=== PATIENT | female | born 1965 | race American Indian/Alaskan Native ===

== ENCOUNTER 2016-03-27 20:56 | Emergency (ER) | payer SELFPAY ==
[2016-03-27] MEDS ORDERED: MOTRIN PO ONE (22:49)
--- NOTE | 2016-03-27 22:53 | Emergency Department Report ---
ED Chest Pain HPI - General Chief Complaint: Chest Pain Stated Complaint: CHEST PAIN Time Seen by Provider: 03/27/16 22:44 Source: patient, EMS Mode of arrival: Stretcher Limitations: Physical Limitation - History of Present Illness Initial Comments: Patient is a 50-year-old female with history of seizure disorder, hyperlipidemia , anxiety presenting today because of right-sided chest pain. States that the pain is sharp in nature and radiates down her right arm. States she's been having this pain on and off for the last 1 month. Denies any nausea vomiting or unusual sweating associated with this. She is not a smoker. - Related Data Home Medications Medication Instructions Recorded Confirmed Last Taken ALPRAZolam [Xanax TAB] 2 mg PO BID 03/27/16 03/27/16 Unknown Hydroxyzine HCl [hydrOXYzine] 25 mg PO QID 03/27/16 03/27/16 Unknown Oxybutynin [Ditropan] 5 mg PO DAILY 03/27/16 03/27/16 Unknown Topiramate [Topamax TAB] 50 mg PO BID 03/27/16 03/27/16 Unknown Previous Rx's Medication Instructions Recorded Last Taken Type Ibuprofen [Motrin] 600 mg PO Q8H PRN #14 tablet 03/28/16 Unknown Rx Allergies Allergy/AdvReac Type Severity Reaction Status Date / Time Penicillins Allergy Unknown Verified 03/27/16 21:05 VIK score - Vik Score Age > 65: (0) No Aspirin use within the Past 7 Days: (0) No 3 or more CAD Risk Factors: (0) No 2 or more Angina events in past 24 hrs: (0) No Known CAD with more than 50% Stenosis: (0) No Elevated Cardiac Markers: (0) No ST Deviation Greater than 0.5mm: (0) No VIK Score: 0 ED Review of Systems ROS: Stated complaint: CHEST PAIN Other details as noted in HPI Comment: All other systems reviewed and negative Constitutional: denies: chills, fever Respiratory: cough. denies: shortness of breath Cardiovascular: chest pain Gastrointestinal: denies: abdominal pain, vomiting, diarrhea Psychiatric: anxiety ED Past Medical Hx - Past Medical History Previous Medical History?: Yes Hx Hypertension: Yes Hx CVA: Yes Hx Seizures: Yes Hx Psychiatric Treatment: Yes (anxiety) - Surgical History Past Surgical History?: No - Social History Smoking Status: Never Smoker Substance Use Type: None - Medications Home Medications: Home Medications Medication Instructions Recorded Confirmed Last Taken Type ALPRAZolam [Xanax TAB] 2 mg PO BID 03/27/16 03/27/16 Unknown History Hydroxyzine HCl [hydrOXYzine] 25 mg PO QID 03/27/16 03/27/16 Unknown History Oxybutynin [Ditropan] 5 mg PO DAILY 03/27/16 03/27/16 Unknown History Topiramate [Topamax TAB] 50 mg PO BID 03/27/16 03/27/16 Unknown History Ibuprofen [Motrin] 600 mg PO Q8H PRN #14 tablet 03/28/16 Unknown Rx ED Physical Exam - General Limitations: Physical Limitation General appearance: in no apparent distress, obese, other (patient is sleepy and only intermittently opens her eyes during questioning. When asked why she states that she has always been sleepy at this time a night and that this is not unusual for her.) - Head Head exam: Present: atraumatic - Eye Eye exam: Present: normal appearance - Neck Neck exam: Present: normal inspection - Respiratory Respiratory exam: Present: normal lung sounds bilaterally, chest wall tenderness (tenderness to the right chest wall that's focal between the second and third ribs and completely reproduces the pain.), other (Limited exam due to body habitus) - Cardiovascular Cardiovascular Exam: Present: regular rate, normal rhythm - GI/Abdominal GI/Abdominal exam: Present: soft. Absent: distended, tenderness - Extremities Exam Extremities exam: Present: normal inspection. Absent: pedal edema - Back Exam Back exam: Present: normal inspection - Neurological Exam Neurological exam: Absent: motor sensory deficit - Psychiatric Psychiatric exam: Present: normal affect - Skin Skin exam: Absent: rash ED Course Vital Signs 03/27/16 03/27/16 03/27/16 21:10 22:00 22:10 Pulse Rate 81 90 Respiratory 14 20 Rate Blood Pressure 101/50 98/49 O2 Sat by Pulse 100 95 95 Oximetry 03/27/16 03/27/16 03/28/16 22:59 23:00 00:00 Pulse Rate 79 80 Respiratory 18 16 16 Rate Blood Pressure 108/48 111/73 O2 Sat by Pulse 99 99 Oximetry - Reevaluation(s) Reevaluation #1: 03/28/16 00:14 Patient states that her chest pain has improved. Labs, EKG and x-ray results reviewed with patient. I explained that we have ruled out a heart attack today but we have not ruled out heart disease. I also explained that she needs to follow-up with a [employer] up [employer] and her primary care doctor in the next few days. She expresses understanding and is comfortable with the plan. All questions answered. 03/28/16 00:16 ED Medical Decision Making - Lab Data Result diagrams: 03/27/16 22:58 03/27/16 22:58 - Medical Decision Making Patient's symptoms do not seem consistent with acute coronary syndrome. However since the patient doesn't appear reliable and she is to 1 years old with a history of hyperlipidemia Will check basic labs including troponin and chest x-ray. EKG shows normal sinus rhythm without any ST changes. One PAC noted. Isolated T-wave inversion in lead 3 however no other T-wave changes. EKG appears nonischemic. Shows poor inspiratory effort, no clear focal infiltrates or pneumothorax. Labs show a normal negative troponin, unremarkable otherwise She has a heart score of 2 (+1 for 2 risk factors and +1 for age) Given her low heart score on the low concern for this being cardiac, will discharge the patient home with primary care and cardiology follow-up. Pressure is noted to be low initially, the patient has no history of hypertension, last 2 blood pressures 15 minutes apart were 110/61 and 111/73. Patient's heart rate has also been normal while here and she is not on a beta blockers is unlikely that this truly represents hypotension for her. Critical care attestation.: If time is entered above; I have spent that time in minutes in the direct care of this critically ill patient, excluding procedure time. ED Disposition Clinical Impression: Chest pain Qualifiers: Chest pain type: unspecified Qualified Code(s): R07.9 - Chest pain, unspecified Disposition: DISCHARGED TO HOME OR SELFCARE Is pt being admited?: No Does the pt Need Aspirin: No Condition: Stable Instructions: Chest Pain (ED) Additional Instructions: Least follow up with her primary care doctor in the next 3-5 days. Please also follow up with a [employer] up [employer] in the same time period. We have ruled out a heart attack in her ER stay, however this may still be from heart disease which is why it is important for you to follow-up with a [employer] up [employer]. If you have any worsening of your chest pain or if you develop any new symptoms please return to the emergency room immediately. Prescriptions: Ibuprofen [Motrin] 600 mg PO Q8H PRN #14 tablet PRN Reason: Pain Referrals: PRIMARY CARE,MD [Primary Care Provider] - 3-5 Days Time of Disposition: 00:16
[2016-03-27 23:13] LABS: Basophils % (Auto) 0.6 % (0.0-1.8); Eosinophils % (Auto) 3.6 % (0.0-4.3); Hemoglobin 11.5 gm/dl (10.1-14.3); White Blood Count 11.8 K/mm3 (4.5-11.0)
[2016-03-27 23:32] LABS: Anion Gap 19 mmol/L; BUN/Creatinine Ratio 17.14; Blood Urea Nitrogen 12 mg/dL (7-17); Calcium 8.4 mg/dL (8.4-10.2); Carbon Dioxide 23 mmol/L (22-30); Chloride 102.7 mmol/L (98-107); Glucose 127 mg/dL (65-100); Potassium 3.6 mmol/L (3.6-5.0); Sodium 141 mmol/L (137-145)
[2016-03-28 00:34] LABS: Hematocrit 35.9 % (30.3-42.9); Mean Corpuscular HGB Conc 32 % (30-34); Mean Corpuscular Hemoglobin 24 pg (28-32); Mean Corpuscular Volume 76 fl (79-97); Platelet Count 289 K/mm3 (140-440); Red Cell Distribution Width 16.7 % (13.2-15.2)
[2016-03-28 01:09] VITALS: BP 112/56
--- NOTE | 2016-03-28 09:54 | XRay Report ---
AP CHEST: HISTORY: chest pain AP view of the chest demonstrates a normal mediastinal and cardiac contour with clear lungs and normal bony and soft tissue structures. IMPRESSION: Unremarkable AP chest.
== END 2016-03-28 01:05 | disposition home or self-care (01) ==
LOC: ED 20:56
DX: R07.9 Chest pain, unspecified (principal); I10 Essential (primary) hypertension; G40.909 Epilepsy, unspecified, not intractable, without status epilepticus; F41.9 Anxiety disorder, unspecified; Z86.73 Personal history of transient ischemic attack (TIA), and cerebral infarction without residual deficits; Z88.0 Allergy status to penicillin
CPT/HCPCS: 36415; 71010; 80048; 84484; 85025; 93005; 93010; 99284

== ENCOUNTER 2021-01-05 23:37 | Emergency (ER) | payer OTHER ==
[2021-01-06] MEDS ORDERED: predniSONE 50 MG TAB PO ONE (01:44)
[2021-01-06] MEDS ORDERED: oxyCODONE /ACETAMINOPHEN 5-325MG TAB PO ONE (01:44)
[2021-01-06] MEDS ORDERED: ONDANSETRON 4 MG ODT TAB PO ONE (01:44)
[2021-01-06 02:21] LABS: Basophils % (Auto) 0.3 % (0.0-1.8); Eosinophils # (Auto) 0.3 K/mm3 (0.0-0.4); Eosinophils % (Auto) 2.8 % (0.0-4.3); Hematocrit 38.9 % (30.3-42.9); Hemoglobin 12.2 gm/dl (10.1-14.3); Lymphocytes # (Auto) 3.6 K/mm3 (1.2-5.4); Lymphocytes % (Auto) 37.7 % (13.4-35.0); Mean Corpuscular HGB Conc 31 % (30-34); Mean Corpuscular Volume 79 fl (79-97); Monocytes # (Auto) 0.4 K/mm3 (0.0-0.8); Monocytes % (Auto) 4.5 % (0.0-7.3); Platelet Count 309 K/mm3 (140-440); Red Blood Count 4.95 M/mm3 (3.65-5.03); Red Cell Distribution Width 16.6 % (13.2-15.2)
[2021-01-06 02:41] LABS: Alanine Aminotransferase 15 units/L (7-56); BUN/Creatinine Ratio 18; Blood Urea Nitrogen 16 mg/dL (7-17); Calcium 9.4 mg/dL (8.4-10.2); Hemolysis Index 17
[2021-01-06 02:57] LABS: Uric Acid 6.5 mg/dL (3.5-7.6)
--- NOTE | 2021-01-06 03:09 | Emergency Department Report ---
<YOSI QUINTERO - Last Filed: 01/06/21 12:02> ED General Adult HPI - General Chief complaint: Extremity Injury, Upper Stated complaint: TOTAL NUMBNESS RIGHTSIDE - Related Data Home Medications Medication Instructions Recorded Confirmed Last Taken ALPRAZolam [Xanax TAB] 2 mg PO BID 03/27/16 03/27/16 Unknown Hydroxyzine HCl [hydrOXYzine] 25 mg PO QID 03/27/16 03/27/16 Unknown Oxybutynin [Ditropan] 5 mg PO DAILY 03/27/16 03/27/16 Unknown Topiramate [Topamax TAB] 50 mg PO BID 03/27/16 03/27/16 Unknown Previous Rx's Medication Instructions Recorded Last Taken Type Ibuprofen [Motrin] 600 mg PO Q8H PRN #14 tablet 03/28/16 Unknown Rx Ondansetron [Zofran Odt] 4 mg PO Q8HR PRN #14 tab.rapdis 01/06/21 Unknown Rx Prednisone [predniSONE 10 mg 10 mg PO .TAPER #1 tab.ds.pk 01/06/21 Unknown Rx (6-Day Pack, 21 Tabs)] traMADoL [Ultram 50 MG tab] 50 mg PO Q4HR PRN #14 tablet 01/06/21 Unknown Rx Allergies Allergy/AdvReac Type Severity Reaction Status Date / Time Penicillins Allergy Unknown Verified 03/27/16 21:05 latex AdvReac Rash Verified 01/06/21 00:06 ED Past Medical Hx - Medications Home Medications: Home Medications Medication Instructions Recorded Confirmed Last Taken Type ALPRAZolam [Xanax TAB] 2 mg PO BID 03/27/16 03/27/16 Unknown History Hydroxyzine HCl [hydrOXYzine] 25 mg PO QID 03/27/16 03/27/16 Unknown History Oxybutynin [Ditropan] 5 mg PO DAILY 03/27/16 03/27/16 Unknown History Topiramate [Topamax TAB] 50 mg PO BID 03/27/16 03/27/16 Unknown History Ibuprofen [Motrin] 600 mg PO Q8H PRN #14 tablet 03/28/16 Unknown Rx Ondansetron [Zofran Odt] 4 mg PO Q8HR PRN #14 tab.rapdis 01/06/21 Unknown Rx Prednisone [predniSONE 10 mg 10 mg PO .TAPER #1 tab.ds.pk 01/06/21 Unknown Rx (6-Day Pack, 21 Tabs)] traMADoL [Ultram 50 MG tab] 50 mg PO Q4HR PRN #14 tablet 01/06/21 Unknown Rx ED Medical Decision Making - Lab Data Result diagrams: 01/06/21 02:00 01/06/21 02:00 - Medical Decision Making Patient is 55 years old female signed out to me by my colleague Dr. Bueno. Patient presented to the ER complaining of right arm pain, neck pain and right lower extremity weakness. Patient stated that her symptoms has been going on for a while however for the last 2 days felt it is getting worse. Patient noticed going to the bathroom several times with no difficulties. Patient is still denying any saddle anesthesia. No bowel or bladder incontinence. MRI of the brain is unremarkable. MRI of the cervical spine showed multilevel narrowing. I discussed the patient and the MRI finding with Dr. Araon Healy, neurosurgeon on-call. He advised patient does not need to be admitted to the hospital and he will be happy to see the patient in his office. Patient given prescription for tramadol, prednisone and Zofran and advised to follow-up with Dr. Healy. Patient also advised to return to the ER if she develop any new symptoms. ED Disposition Clinical Impression: Acute chest pain, Right sided weakness, Right sided numbness, Morbid obesity, Degenerative disc disease, cervical Disposition: 01 HOME / SELF CARE / HOMELESS Is pt being admited?: No Condition: Good Instructions: Cervical Radiculopathy, Degenerative Disk Disease, Weakness, Chest Pain (ED) Prescriptions: Prednisone [predniSONE 10 mg (6-Day Pack, 21 Tabs)] 10 mg PO .TAPER #1 tab.ds.pk traMADoL [Ultram 50 MG tab] 50 mg PO Q4HR PRN #14 tablet PRN Reason: Pain Ondansetron [Zofran Odt] 4 mg PO Q8HR PRN #14 tab.rapdis PRN Reason: Nausea And Vomiting Referrals: PRIMARY CARE,MD [Primary Care Provider] - 3-5 Days AARON BARTHOLOMEW II, MD [Staff Physician] - 3-5 Days Forms: Work/School Release Form(ED) <EMMA GONZALEZ - Last Filed: 01/07/21 06:11> ED General Adult HPI - General PUI?: No Source: patient, RN notes reviewed Mode of arrival: Wheelchair Limitations: Physical Limitation - History of Present Illness Initial comments: The patient was evaluated in the emergency department for symptoms described in the history of present illness. He/she was evaluated in the context of the global COVID-19 pandemic, which necessitated consideration that the patient might be at risk for infection with the virus that causes COVID-19. Institutional protocols and algorithms that pertain to the evaluation of patients at risk for COVID-19 are in a state of rapid change based on information released by regulatory bodies including the CDC and federal and state organizations. These policies and algorithms were followed during the patient's care in the emergency department. Please note that these policies, procedures and recommendations changed on a rapid basis. During the history and physical examination, I am chaperoned by Casandra Romero Past medical history: Obesity, body mass index of 42, anxiety, stroke, hypertens ion, chronic pain The patient is a 55-year-old female. She states that she is right-hand dominant. She presents to the ER today with a primary complaint of right arm, right leg weakness and numbness, and decreased ability to move her right arm and right leg. Symptoms present for 2 to 2-1/2 days. This is associated with paracervical neck pain. The patient has a chronic headache. The patient denies midline neck pain. The patient also endorses central, and left-sided chest pain. The pain does not radiate to the back, arms or neck. The patient denies vomiting, diaphoresis. The patient has chronic shortness of breath. The patient denies travel, surgery, immobilization, DVT and pulmonary embolism risk factors. The patient denies bladder/bowel retention incontinence and saddle anesthesia. The patient denies new/different lumbar back pain. The patient denies abdominal pain. The patient denies intravenous drug use. -: Gradual, days(s) Location: chest (Chest pain started this evening), right, upper extremity, lower extremity Severity scale (0 -10): 10 Consistency: constant Improves with: rest Worsens with: movement ED Review of Systems ROS: Stated complaint: TOTAL NUMBNESS RIGHTSIDE Other details as noted in HPI Constitutional: malaise, weakness Eyes: denies: eye discharge ENT: denies: epistaxis Respiratory: shortness of breath. denies: cough Cardiovascular: chest pain Gastrointestinal: denies: abdominal pain Musculoskeletal: back pain, arthralgia, myalgia Neurological: weakness, numbness, paresthesias, abnormal gait ED Past Medical Hx - Past Medical History Hx Hypertension: Yes Hx CVA: Yes Hx Seizures: Yes Hx Psychiatric Treatment: Yes (anxiety) Additional medical history: Chronic pain - Surgical History Past Surgical History?: No - Social History Smoking Status: Never Smoker Substance Use Type: None ED Physical Exam - General Limitations: Physical Limitation General appearance: alert, obese - Head Head exam: Present: atraumatic, normocephalic - Eye Eye exam: Present: normal appearance, EOMI. Absent: nystagmus - ENT ENT exam: Present: normal exam, normal orophraynx, mucous membranes moist, normal external ear exam - Neck Neck exam: Present: normal inspection, full ROM. Absent: tenderness, meningismus - Respiratory Respiratory exam: Present: decreased breath sounds. Absent: respiratory distress, wheezes, rales, rhonchi, stridor - Cardiovascular Cardiovascular Exam: Present: regular rate, normal rhythm, normal heart sounds. Absent: bradycardia, tachycardia, irregular rhythm, systolic murmur, diastolic murmur, rubs, gallop - GI/Abdominal GI/Abdominal exam: Present: soft. Absent: distended, tenderness, guarding, rebound, rigid, pulsatile mass - Extremities Exam Extremities exam: Present: normal inspection, full ROM (Full range of motion left arm and left leg), pedal edema (1+ edema in the bilateral lower extremities), other (2+ pulses noted in the bilateral upper and lower e xtremities. There is no palpable cord. negative Homans sign. Muscular compartments are soft. The pelvis is stable.). Absent: calf tenderness - Back Exam Back exam: Present: normal inspection, paraspinal tenderness. Absent: tenderness, CVA tenderness (R), CVA tenderness (L) - Neurological Exam Neurological exam: Present: alert (There is no facial droop. The tongue is midline. EOMI.), oriented X3, motor sensory deficit (There is 4 out of 5 strength right arm and right leg. 5 out of 5 strength left arm and left leg. Decreased sensation to light touch right arm and right leg.) - Psychiatric Psychiatric exam: Present: normal affect, normal mood - Skin Skin exam: Present: warm, dry, intact, normal color. Absent: rash ED Course Vital Signs 01/06/21 01/06/21 01/06/21 00:00 02:21 03:28 Temperature 98.9 F Pulse Rate 81 83 Respiratory 20 18 21 Rate Blood Pressure 124/61 Blood Pressure [Left] O2 Sat by Pulse 99 Oximetry 01/06/21 01/06/21 01/06/21 03:30 03:45 04:00 Temperature Pulse Rate 76 83 66 Respiratory 16 13 21 Rate Blood Pressure 116/52 113/62 113/62 Blood Pressure [Left] O2 Sat by Pulse 98 98 100 Oximetry 01/06/21 01/06/21 01/06/21 04:15 04:31 04:45 Temperature Pulse Rate 72 92 H 90 Respiratory 20 13 18 Rate Blood Pressure Blood Pressure [Left] O2 Sat by Pulse 95 95 92 Oximetry 01/06/21 01/06/21 01/06/21 05:01 05:15 05:31 Temperature Pulse Rate 82 86 86 Respiratory 12 12 13 Rate Blood Pressure 125/89 Blood Pressure [Left] O2 Sat by Pulse 97 95 95 Oximetry 01/06/21 01/06/21 01/06/21 05:45 06:01 06:15 Temperature Pulse Rate 74 84 94 H Respiratory 11 L 12 15 Rate Blood Pressure Blood Pressure [Left] O2 Sat by Pulse 97 96 92 Oximetry 01/06/21 01/06/21 01/06/21 06:30 06:45 06:57 Temperature Pulse Rate 106 H 76 83 Respiratory 23 13 16 Rate Blood Pressure Blood Pressure 114/67 [Left] O2 Sat by Pulse 97 94 99 Oximetry 01/06/21 01/06/21 01/06/21 07:01 07:15 07:31 Temperature Pulse Rate 74 Respiratory 11 L 14 Rate Blood Pressure 114/67 114/67 114/67 Blood Pressure [Left] O2 Sat by Pulse 99 98 96 Oximetry 01/06/21 01/06/21 01/06/21 07:45 08:01 08:15 Temperature Pulse Rate 86 Respiratory 14 Rate Blood Pressure 114/67 122/66 122/66 Blood Pressure [Left] O2 Sat by Pulse 88 97 95 Oximetry 01/06/21 01/06/21 01/06/21 08:31 08:46 08:48 Temperature Pulse Rate Respiratory 20 Rate Blood Pressure 112/60 112/60 Blood Pressure [Left] O2 Sat by Pulse 96 96 97 Oximetry 01/06/21 01/06/21 01/06/21 11:57 12:01 12:15 Temperature Pulse Rate 89 84 Respiratory 20 19 Rate Blood Pressure 112/60 112/60 112/60 Blood Pressure [Left] O2 Sat by Pulse 80 L 99 Oximetry 01/06/21 12:31 Temperature Pulse Rate 69 Respiratory 20 Rate Blood Pressure 115/70 Blood Pressure [Left] O2 Sat by Pulse 98 Oximetry - Reevaluation(s) Reevaluation #1: 01/06/21 05:28 Differential diagnosis, including but not limited to: Deconditioning, cervical radiculopathy, brachial plexopathy, stroke, pneumonia, GERD, gastritis, hiatal hernia, coronary artery disease, obstructive sleep apnea, pulmonary hypertension Assessment and plan: 55-year-old female with 2 complaints. Complaints 1, right-sided weakness and numbness for 2 days. Suspicious for cervical radiculopathy. Noncontrast CT scan of the brain and cervical spine nondiagnostic. MRI without contrast of the brain, MRI of the cervical spine with and without contrast have been ordered. Discussed the patient's history, physical, and clinical impression with neurology on-call, Dr. Steele; please reference his note. Recommends of follow-up on MRI. We will treat the patient's pain. Care will be transferred to the oncoming ER physician, Dr. Adrienne Sheikh to follow-up on MRI of the brain and cervical spine. In terms of the patient's chest pain, she is not currently tachycardic, tachypneic or hypoxic, she denies DVT and pulmonary embolism risk factors, and she is low risk by Wells criteria for pulmonary embolism. Moderate risk for major adverse cardiac event as per heart score. Reevaluation #2: 01/06/21 05:34 [place] inseamer aware 12/19/2020 1 12/19/2020 OXYCODONE HCL 15 MG TABLET 60.0 30 IN KATTY [id number] [facility] (4493) 0 45.0 M[facility] Comm [place] 12/19/2020 1 12/19/2020 OXYCODONE-ACETAMINOPHEN 10-325 120.0 30 IN KATTY [id number] [facility] (4493) 0 60.0 [place] [place] 11/20/2020 1 11/18/2020 OXYCODONE HCL 15 MG TABLET 60.0 30 IN KATTY [id number] [facility] (4493) 0 45.0 [place] [place] 11/20/2020 1 11/18/2020 OXYCODONE-ACETAMINOPHEN 10-325 120.0 30 IN KATTY [id number] [facility] (4493) 0 60.0 [place] 10/23/2020 1 10/23/2020 OXYCODONE HCL 15 MG TABLET 60.0 30 IN KATTY [id number] [facility] (4493) 0 45.0 [place] 10/23/2020 1 10/23/2020 OXYCODONE-ACETAMINOPHEN 10-325 120.0 30 IN KATTY [id number] [facility] (4493) 0 60.0 [place] 09/23/2020 1 09/23/2020 OXYCODONE HCL 15 MG TABLET 60.0 30 IN KATTY [id number] [facility] (4493) [address] [facility] 09/23/2020 1 09/23/2020 OXYCODONE-ACETAMINOPHEN 10-325 120.0 30 IN KATTY [id number] [facility] (4493) [address] [facility] 08/26/2020 1 08/26/2020 OXYCODONE HCL 15 MG TABLET 60.0 30 IN KATTY [id number] [facility] (4493) [address] [facility] 08/26/2020 1 08/26/2020 OXYCODONE-ACETAMINOPHEN 10-325 120.0 30 IN KATTY [id number] [facility] (4493) [address] [facility] 07/29/2020 1 07/28/2020 OXYCODONE HCL 15 MG TABLET 60.0 30 IN KATTY [id number] [facility] (4493) [address] [facility] 07/28/2020 1 07/28/2020 OXYCODONE-ACETAMINOPHEN 10-325 120.0 30 IN KATTY [id number] [facility] (2639) 0 60.0 [place] 07/03/2020 1 06/30/2020 OXYCODONE-ACETAMINOPHEN 10-325 120.0 30 IN KATTY [id number] [facility] (4493) [address] [facility] 06/30/2020 1 06/30/2020 OXYCODONE HCL 15 MG TABLET 60.0 20 IN KATTY [id number] [facility] (4493) 0 67.5 [facility] [place] 06/30/2020 1 06/30/2020 PHENTERMINE 37.5 MG TABLET 30.0 30 IN KATTY [id number] [facility] (4493) 0 Comm Ins [place] 06/05/2020 1 06/02/2020 OXYCODONE-ACETAMINOPHEN 10-325 120.0 30 IN KATTY [id number] [facility] (4493) 0 60.0 [place] 06/05/2020 1 06/02/2020 OXYCODONE HCL 15 MG TABLET 60.0 15 IN KATTY [id number] [facility] (4493) 0 90.0 [place] 05/08/2020 1 05/05/2020 OXYCODONE HCL 15 MG TABLET 60.0 30 IN KATTY [id number] [facility] (4493) 0 45.0 [place] 05/08/2020 1 05/05/2020 OXYCODONE-ACETAMINOPHEN 10-325 120.0 30 IN KATTY [id number] [facility] (4493) 0 60.0 [place] 04/08/2020 3 04/08/2020 OXYCODONE HCL 15 MG TABLET 60.0 30 IN KATTY [id number] [facility] (7953) 0 45.0 [place] 04/08/2020 3 04/08/2020 OXYCODONE-ACETAMINOPHEN 10-325 120.0 30 IN KATTY [id number] [facility] (7953) 0 60.0 [place] 03/12/2020 3 03/11/2020 OXYCODONE HCL 15 MG TABLET 60.0 30 IN KATTY [id number] [facility] (6159) 0 45.0 [place] 03/11/2020 3 03/10/2020 OXYCODONE-ACETAMINOPHEN 10-325 120.0 30 IN KATTY [id number] [facility] (7953) 0 60.0 [place] 02/12/2020 2 02/12/2020 OXYCODONE HCL 15 MG TABLET 60.0 30 IN KATTY [id number] [facility] (6159) 0 45.0 [place] 02/12/2020 2 02/12/2020 OXYCODONE-ACETAMINOPHEN 10-325 120.0 30 IN KATTY [id number] [facility] (0950) 0 60.0 [place] [place] *Pharmacy is created using a combination of pharmacy name and the last four digits of the pharmacy license number. *Per CDC guidance, the MME conversion factors prescribed or provided as part of medication-assisted treatment for opioid use disorder should not be used to benchmark against dosage thresholds meant for opioids prescribed for pain. B uprenorphine products have no agreed upon morphine equivalency, and as partial opioid agonists, are not expected to be associated with overdose risk in the same dose-dependent manner as doses for full agonist opioids. MME = morphine milligram equivalents. mg = dose in milligrams. Prescribers Name Address [facility] Zip Phone ANNELISE Guajardo PATRICIA [address] [facility] [id number] [facility] Address [facility] Zip Phone [employer] [phone] [facility] [id number] [place] [phone] [facility] [address] [phone] [place] [phone] [facility] [id number] [place] [phone] [facility] [id number] ED Medical Decision Making - Lab Data Result diagrams: 01/06/21 02:00 01/06/21 02:00 Vital Signs 01/06/21 01/06/21 01/06/21 00:00 02:21 03:28 Temperature 98.9 F Pulse Rate 81 83 Respiratory 20 18 21 Rate Blood Pressure 124/61 O2 Sat by Pulse 99 Oximetry 01/06/21 01/06/21 03:30 03:45 Temperature Pulse Rate 76 83 Respiratory 16 13 Rate Blood Pressure 116/52 113/62 O2 Sat by Pulse 98 98 Oximetry Lab Results 01/06/21 01/06/21 01/06/21 Range/Units 02:00 02:00 04:02 WBC 9.6 (4.5-11.0) K/mm3 RBC 4.95 (3.65-5.03) M/mm3 Hgb 12.2 (10.1-14.3) gm/dl Hct 38.9 (30.3-42.9) % MCV 79 (79-97) fl MCH 25 L (28-32) pg MCHC 31 (30-34) % RDW 16.6 H (13.2-15.2) % Plt Count 309 (140-440) K/mm3 Lymph % (Auto) 37.7 H (13.4-35.0) % [place] % (Auto) 4.5 (0.0-7.3) % Eos % (Auto) 2.8 (0.0-4.3) % Baso % (Auto) 0.3 (0.0-1.8) % Lymph # (Auto) 3.6 (1.2-5.4) K/mm3 [place] # (Auto) 0.4 (0.0-0.8) K/mm3 Eos # (Auto) 0.3 (0.0-0.4) K/mm3 Baso # (Auto) 0.0 (0.0-0.1) K/mm3 Seg Neutrophils % 54.7 (40.0-70.0) % Seg Neutrophils # 5.2 (1.8-7.7) K/mm3 PT 13.7 (12.2-14.9) Sec. INR 0.95 (0.87-1.13) Sodium 141 (137-145) mmol/L Potassium 4.3 (3.6-5.0) mmol/L Chloride 103.6 (98-107) mmol/L Carbon Dioxide 25 (22-30) mmol/L Anion Gap 17 mmol/L BUN 16 (7-17) mg/dL Creatinine 0.9 (0.6-1.2) mg/dL Estimated GFR > 60 ml/min BUN/Creatinine Ratio 18 % Glucose 105 H (65-100) mg/dL Uric Acid 6.5 (3.5-7.6) mg/dL Calcium 9.4 (8.4-10.2) mg/dL Magnesium (1.7-2.3) mg/dL Total Bilirubin 0.20 (0.1-1.2) mg/dL AST 15 (5-40) units/L ALT 15 (7-56) units/L Alkaline Phosphatase 99 (35-129) units/L Total Creatine Kinase (30-135) units/L Troponin T (0.00-0.029) ng/mL Total Protein 6.9 (6.3-8.2) g/dL Albumin 4.0 (3.9-5) g/dL Albumin/Globulin Ratio 1.4 % TSH (0.270-4.200) mlU/mL 01/06/21 01/06/21 Range/Units 04:02 04:02 WBC (4.5-11.0) K/mm3 RBC (3.65-5.03) M/mm3 Hgb (10.1-14.3) gm/dl Hct (30.3-42.9) % MCV (79-97) fl MCH (28-32) pg MCHC (30-34) % RDW (13.2-15.2) % Plt Count (140-440) K/mm3 Lymph % (Auto) (13.4-35.0) % Kings[place] % (Auto) (0.0-7.3) % Eos % (Auto) (0.0-4.3) % Baso % (Auto) (0.0-1.8) % Lymph # (Auto) (1.2-5.4) K/mm3 [place] # (Auto) (0.0-0.8) K/mm3 Eos # (Auto) (0.0-0.4) K/mm3 Baso # (Auto) (0.0-0.1) K/mm3 Seg Neutrophils % (40.0-70.0) % Seg Neutrophils # (1.8-7.7) K/mm3 PT (12.2-14.9) Sec. INR (0.87-1.13) Sodium (137-145) mmol/L Potassium (3.6-5.0) mmol/L Chloride (98-107) mmol/L Carbon Dioxide (22-30) mmol/L Anion Gap mmol/L BUN (7-17) mg/dL Creatinine (0.6-1.2) mg/dL Estimated GFR ml/min BUN/Creatinine Ratio % Glucose (65-100) mg/dL Uric Acid (3.5-7.6) mg/dL Calcium (8.4-10.2) mg/dL Magnesium 2.20 (1.7-2.3) mg/dL Total Bilirubin (0.1-1.2) mg/dL AST (5-40) units/L ALT (7-56) units/L Alkaline Phosphatase (35-129) units/L Total Creatine Kinase 151 H (30-135) units/L Troponin T < 0.010 (0.00-0.029) ng/mL Total Protein (6.3-8.2) g/dL Albumin (3.9-5) g/dL Albumin/Globulin Ratio % TSH 1.200 (0.270-4.200) mlU/mL - EKG Data -: EKG Interpreted by Mt EKG shows normal: sinus rhythm Rate: normal - EKG Data When compared to previous EKG there are: previous EKG unavailable 01/06/21 05:30 EKG interpreted at 05: 2 8 Sinus rhythm, 71 bpm. Normal axis, normal P wave axis. Premature atrial compl exes. Abnormal EKG. Not a STEMI. Low voltage. No prior for comparison. - Radiology Data Radiology results: pending, report reviewed, image reviewed CT head/brain wo con, CT cervical spine wo con INDICATION / CLINICAL INFORMATION: Right sided weakness / Right sided numbness. TECHNIQUE: Axial coronal and sagittal images All CT scans at this location are performed using CT dose reduction for ALARA by means of automated exposure control. COMPARISON: None available. FINDINGS: CT head: No acute intracranial hemorrhage. Ventricles are normal in size without midline shift or mass effect. No extra-axial fluid collection is seen. Orbits appear normal. CT cervical spine: Cervical spine alignment appears normal. Facets are well aligned throughout. Anterior posterior disc osteophytes are seen throughout. No subluxation. Odontoid appears intact. Skull base appears normal.. Disc osteophytes and uncovertebral degenerative change resulting neuroforaminal narrowing at several levels. IMPRESSION: 1. No acute findings in the CT head and CT cervical spine. Degenerative changes seen throughout the CT cervical spine. Given patient's symptoms of right-sided weakness MRI could be performed for further evaluation of radiculopathy. Signer Name: Jose Jackson MD Signed: 01/06/2021 3:15 AM Workstation Name: [id number]- [id number] CT head/brain wo con, CT cervical spine wo con INDICATION / CLINICAL INFORMATION: Right sided weakness / Right sided numbness. TECHNIQUE: Axial coronal and sagittal images All CT scans at this location are performed using CT dose reduction for ALARA by means of automated exposure control. COMPARISON: None available. FINDINGS: CT head: No acute intracranial hemorrhage. Ventricles are normal in size without midline shift or mass effect. No extra-axial fluid collection is seen. Orbits appear normal. CT cervical spine: Cervical spine alignment appears normal. Facets are well aligned throughout. Anterior posterior disc osteophytes are seen throughout. No subluxation. Odontoid appears intact. Skull base appears normal.. Disc osteophytes and uncovertebral degenerative change resulting neuroforaminal narrowing at several levels. IMPRESSION: 1. No acute findings in the CT head and CT cervical spine. Degenerative changes seen throughout the CT cervical spine. Given patient's symptoms of right-sided weakness MRI could be performed for further evaluation of radiculopathy. Signer Name: Jose Jackson MD Signed: 01/06/2021 3:15 AM CHEST 1 VIEW 01/06/2021 3:04 AM INDICATION / CLINICAL INFORMATION: acute chest [pain. COMPARISON: None available. FINDINGS: SUPPORT DEVICES: None. HEART / MEDIASTINUM: No significant abnormality. LUNGS / PLEURA: No significant pulmonary or pleural abnormality. No pneumothorax. ADDITIONAL FINDINGS: No significant additional findings. IMPRESSION: 1. No acute findings. Signer Name: Jose Jackson MD Signed: 01/06/2021 3:06 AM Workstation Name: [facility]- [id number] [facility] [address] [place] [address] Magnetic Resonance Report Signed Patient: GISEL CHAMBERS MR#: [id number] 1 : 1965 Acct:[id number] Age/Sex: 55 / F ADM Date: 01/05/21 Loc: ED Attending Dr: Ordering Physician: EMMA GONZALEZ MD Date of Service: 01/06/21 Procedure(s): MR cervical spine wo/w con Accession Number(s): [id number] cc: EMMA GONZALEZ MD MR cervical spine wo/w con INDICATION / CLINICAL INFORMATION: right arm /leg weakness, numbness. TECHNIQUE: Multisequence, multiplanar images of the cervical spine were obtained. COMPARISON: None available. FINDINGS: ALIGNMENT: Normal alignment. VERTEBRAE:No aggressive osseous marrow signal. Vertebral body heights are preserved. SPINAL CORD: No abnormal cord signal CONTRAST: No abnormal enhancement. [id number] ANALYSIS: C2-C3: No significant spinal canal stenosis. No significant foraminal narrowing. C3-C4: Asymmetric to right disc osteophyte complex. Small right central protrusion. Mild spinal canal stenosis. Mild bilateral foraminal narrowing. C4-C5: Small disc osteophyte complex mild spinal canal stenosis. Moderate left and mild right foraminal narrowing. C5-C6: Small disc osteophyte complex. Mild spinal canal stenosis. Moderate bilateral foraminal narrowing. C6- C7: Small disc osteophyte complex. Mild spinal canal stenosis. Mild right no significant left foraminal narrowing. C7-T1: No significant spinal canal stenosis. No significant foraminal narrowing. PARASPINAL SOFT TISSUES: No significant abnormality. ADDITIONAL FINDINGS: None. IMPRESSION: Spondylosis as described above. Hobbs features below: * Spondylosis with mild spinal canal stenosis and C3-C4 to C6-C7 as described above. * Multilevel foraminal narrowing most pronounced on the left at C4-C5 and bilaterally C5-C6. Correlate for left C5 and bilateral C6 nerve symptoms. CERVICAL GRADING DEFINITIONS FOR THE PURPOSES OF THIS REPORT: Cervical canal stenosis: No stenosis: No significant attenuation of the CSF spaces Mild stenosis: Attenuation or effacement of the ventral CSF Moderate stenosis: Effacement of both the ventral and dorsal CSF, cord flattening, but some CSF remaining Severe stenosis: Effacement of all CSF, cord compression Cervical neural foraminal stenosis (Ana et al. Pashto J Radiol. 2015 Jan -Feb;16(6):1294-302): No stenosis: No attenuation of the fat in the foramen Mild stenosis: Narrowest point of the foramen is larger than the extraforaminal nerve Moderate stenosis: Narrowest point of the foramen remains greater than 50% of the caliber of the extraforaminal nerve Severe stenosis: Narrowest point of the foramen is less than 50% of the caliber of the extraforaminal nerve Signer Name: Abhijit Forrest MD Signed: 01/06/2021 10:21 AM Workstation Name: [id number] Transcribed By: ION Dictated By: Abhijit Forrest MD Electronically Authenticated By: Abhijit Forrest MD Signed Date/Time: 01/06/21 1021 DD/ 1017 [facility] [address] [place] [address] Magnetic Resonance Report Signed Patient: GISEL CHAMBERS MR#: [id number] 1 : 1965 Acct:[id number] Age/Sex: 55 / F ADM Date: 01/05/21 Loc: ED Attending Dr: Ordering Physician: EMMA GONZALEZ MD Date of Service: 01/06/21 Procedure(s): MR brain wo con Accession Number(s): [id number] cc: EMMA GONZALEZ MD MR brain wo con INDICATION / CLINICAL INFORMATION: right arm /leg weakness, numbness. TECHNIQUE: Multiplanar, multisequence MR images of the brain were obtained. COMPARISON: January 06 2021. FINDINGS: INTRACRANIAL: No restricted diffusion. No hemorrhage. Ventricular caliber is normal. No extra- axial collection. No mass. No herniation. Major intracranial vascular flow voids are preserved. No evidence for multiple sclerosis. ORBITS: No significant abnormality of visualized orbits. SINUSES / MASTOIDS: No significant abnormality of visualized sinuses and mastoid air cells. ADDITIONAL FINDINGS: None. IMPRESSION: 1. No significant intracranial abnormality. Signer Name: Abhijit Forrest MD Signed: 01/06/2021 10:17 AM Workstation Name: [id number] Transcribed By: CS Dictated By: Abhijit Forrest MD Electronically Authenticated By: Abhijit Forrest MD Signed Date/Time: 01/06/21 1017 DD/ 1012 Critical care attestation.: If time is entered above; I have spent that time in minutes in the direct care of this critically ill patient, excluding procedure time. ED Disposition Is pt being admited?: No Does the pt Need Aspirin: No Heart Score - HEART Score History: Slightly suspicious EKG: Non-specific Age: 45-65 Risk factors: > 3 risk factors or hx of atherosclerotic disease Troponin: < normal limit HEART Score: 4 - EKG Read Time Time EKG Completed: 05:28 EKG Read Time: 05:28 - Critical Actions Critical Actions: 4-6 pts:12-16.6% risk of adverse cardiac event. Should be admitted
[2021-01-06] MEDS ORDERED: NITROGLYCERIN 0.4 MG TAB SUBL SL PRN (03:25)
[2021-01-06] MEDS ORDERED: FAMOTIDINE 20 MG TAB PO ONE (03:25)
[2021-01-06] MEDS ORDERED: MORPHINE 4 MG/1 ML INJ IV ONE (03:25)
--- NOTE | 2021-01-06 04:10 | XRay Report ---
CHEST 1 VIEW 01/06/2021 3:04 AM INDICATION / CLINICAL INFORMATION: acute chest [pain. COMPARISON: None available. FINDINGS: SUPPORT DEVICES: None. HEART / MEDIASTINUM: No significant abnormality. LUNGS / PLEURA: No significant pulmonary or pleural abnormality. No pneumothorax. ADDITIONAL FINDINGS: No significant additional findings. IMPRESSION: 1. No acute findings. Signer Name: Jose Jackson MD Signed: 01/06/2021 4:06 AM Workstation Name: [id number]
--- NOTE | 2021-01-06 04:14 | Consultation ---
History of Present Illness History of present illness: [facility] Consult Note # Demographics Consult Type: Acute Stroke Level 2 (4.5-24 hrs) Patient Location: Emergency Room First Name: Niyah Last Name: Lee Date of : 1965 Age: 55 Gender: Female Facility: [facility] Time of Initial Page (Eastern Time): 01/06/2021, 03:27 Time of Return Call (Eastern Time): 01/06/2021, 03:28 # HPI History: 55 year-old female presents with right-sided numbness. Symptoms began 2 days ago. # Exam Vitals: vital signs reviewed # PMH-FH-SH Past Medical History: anxiety migraine # Data Head CT: no bleed preliminary read # Assessment Impression: Right-sided numbness - possible stroke # Plan Thrombolytic/Intervention: NOT IV Thrombolysis or IA Intervention candidate Thrombolytic Exclusion: > 4.5 hours Intraarterial Exclusion: non-disabling Imaging: (urgency: routine): MRI Brain without contrast Other: permissive hypertension telemetry monitoring would not pursue stroke work-up if MRI is negative I have discussed my recommendations with the referring provider Disposition: observation Medications and Allergies Allergies Allergy/AdvReac Type Severity Reaction Status Date / Time Penicillins Allergy Unknown Verified 03/27/16 21:05 latex AdvReac Rash Verified 01/06/21 00:06 Home Medications Medication Instructions Recorded Confirmed Last Taken Type ALPRAZolam [Xanax TAB] 2 mg PO BID 03/27/16 03/27/16 Unknown History Hydroxyzine HCl [hydrOXYzine] 25 mg PO QID 03/27/16 03/27/16 Unknown History Oxybutynin [Ditropan] 5 mg PO DAILY 03/27/16 03/27/16 Unknown History Topiramate [Topamax TAB] 50 mg PO BID 03/27/16 03/27/16 Unknown History Ibuprofen [Motrin] 600 mg PO Q8H PRN #14 tablet 03/28/16 Unknown Rx Active Meds: Active Medications Nitroglycerin (Nitroglycerin 0.4 Mg Tab Subl) 0.4 mg SL .Q5MIN PRN PRN Reason: Chest Pain Physical Examination - Vital Signs Vital Signs: Vital Signs Temp Pulse Resp BP Pulse Ox 98.9 F 81 20 124/61 99 01/06/21 00:00 01/06/21 00:00 01/06/21 00:00 01/06/21 00:00 01/06/21 00:00 Results - Laboratory Findings CBC and BMP: 01/06/21 02:00 01/06/21 02:00 Abnormal Lab Findings: Abnormal Labs 01/06/21 01/06/21 02:00 02:00 MCH 25 L RDW 16.6 H Lymph % (Auto) 37.7 H Glucose 105 H
--- NOTE | 2021-01-06 04:20 | Cat Scan Report ---
CT head/brain wo con, CT cervical spine wo con INDICATION / CLINICAL INFORMATION: Right sided weakness / Right sided numbness. TECHNIQUE: Axial coronal and sagittal images All CT scans at this location are performed using CT dose reduction for ALARA by means of automated exposure control. COMPARISON: None available. FINDINGS: CT head: No acute intracranial hemorrhage. Ventricles are normal in size without midline shift or mass effect. No extra-axial fluid collection is seen. Orbits appear normal. CT cervical spine: Cervical spine alignment appears normal. Facets are well aligned throughout. Anterior posterior disc osteophytes are seen throughout. No subluxation. Odontoid appears intact. Skull base appears normal.. Disc osteophytes and uncovertebral degenerative change resulting neuroforaminal narrowing at several levels. IMPRESSION: 1. No acute findings in the CT head and CT cervical spine. Degenerative changes seen throughout the C T cervical spine. Given patient's symptoms of right-sided weakness MRI could be performed for further evaluation of radiculopathy. Signer Name: Jose Jackson MD Signed: 01/06/2021 4:15 AM Workstation Name: [id number]
[2021-01-06 04:45] LABS: INR 0.95 (0.87-1.13)
[2021-01-06] MEDS ORDERED: ASPIRIN 81 MG TAB CHEW PO ONE (05:31)
--- NOTE | 2021-01-06 10:21 | Magnetic Resonance Report ---
MR brain wo con INDICATION / CLINICAL INFORMATION: right arm /leg weakness, numbness. TECHNIQUE: Multiplanar, multisequence MR images of the brain were obtained. COMPARISON: January 06 2021. FINDINGS: INTRACRANIAL: No restricted diffusion. No hemorrhage. Ventricular caliber is normal. No extra-axial c ollection. No mass. No herniation. Major intracranial vascular flow voids are preserved. No evidence for multiple sclerosis. ORBITS: No significant abnormality of visualized orbits. SINUSES / MASTOIDS: No significant abnormality of visualized sinuses and mastoid air cells. ADDITIONAL FINDINGS: None. IMPRESSION: 1. No significant intracranial abnormality. Signer Name: Abhijit Forrest MD Signed: 01/06/2021 10:17 AM Workstation Name: [id number]
--- NOTE | 2021-01-06 10:25 | Magnetic Resonance Report ---
MR cervical spine wo/w con INDICATION / CLINICAL INFORMATION: right arm /leg weakness, numbness. TECHNIQUE: Multisequence, multiplanar images of the cervical spine were obtained. COMPARISON: None available. FINDINGS: ALIGNMENT: Normal alignment. VERTEBRAE:No aggressive osseous marrow signal. Vertebral body heights are preserved. SPINAL CORD: No abnormal cord signal CONTRAST: No abnormal enhancement. [id number] ANALYSIS: C2-C3: No significant spinal canal stenosis. No significant foraminal narrowing. C3-C4: Asymmetric to right disc osteophyte complex. Small right central protrusion. Mild spinal canal stenosis. Mild bilateral foraminal narrowing. C4-C5: Small disc osteophyte complex mild spinal canal stenosis. Moderate left and mild right foramin al narrowing. C5-C6: Small disc osteophyte complex. Mild spinal canal stenosis. Moderate bilateral foraminal narrow ing. C6-C7: Small disc osteophyte complex. Mild spinal canal stenosis. Mild right no significant left fora neto narrowing. C7-T1: No significant spinal canal stenosis. No significant foraminal narrowing. PARASPINAL SOFT TISSUES: No significant abnormality. ADDITIONAL FINDINGS: None. IMPRESSION: Spondylosis as described above. Hobbs features below: * Spondylosis with mild spinal canal stenosis and C3-C4 to C6-C7 as described above. * Multilevel foraminal narrowing most pronounced on the left at C4-C5 and bilaterally C5-C6. Correla te for left C5 and bilateral C6 nerve symptoms. CERVICAL GRADING DEFINITIONS FOR THE PURPOSES OF THIS REPORT: Cervical canal stenosis: No stenosis: No significant attenuation of the CSF spaces Mild stenosis: Attenuation or effacement of the ventral CSF Moderate stenosis: Effacement of both the ventral and dorsal CSF, cord flattening, but so me CSF remaining Severe stenosis: Effacement of all CSF, cord compression Cervical neural foraminal stenosis (Ana et al. Turkish J Radiol. 2015 Jan-Feb;16(6):1294-302): No stenosis: No attenuation of the fat in the foramen Mild stenosis: Narrowest point of the foramen is larger than the extraforaminal nerve Moderate stenosis: Narrowest point of the foramen remains greater than 50% of the caliber of the extraforaminal nerve Severe stenosis: Narrowest point of the foramen is less than 50% of the caliber of th e extraforaminal nerve Signer Name: Abhijit Forrest MD Signed: 01/06/2021 10:21 AM Workstation Name: [id number]
[2021-01-06 12:34] VITALS: BP 115/70
--- NOTE | 2021-01-06 19:17 | Electrocardiograph Report ---
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
== END 2021-01-06 14:16 | disposition home or self-care (01) ==
LOC: ED 23:37
DX: R07.89 Other chest pain (principal); R20.0 Anesthesia of skin; M50.30 Other cervical disc degeneration, unspecified cervical region; E66.01 Morbid (severe) obesity due to excess calories; Z88.0 Allergy status to penicillin; Z91.040 Latex allergy status; Z79.899 Other long term (current) drug therapy
CPT/HCPCS: 36415; 70450; 70551; 71045; 72125; 72156; 80053; 82550; 83735; 84443; 84484; 84550; 85025; 85610; 93005; 96374; 99284; A9575; J2270; J7512; Q0162